=== PATIENT | male | born 1950 | race Caucasian/White ===

== ENCOUNTER 2021-04-16 07:56 | Outpatient (RCR) | payer MEDICARE, OTHER, SELFPAY ==
--- NOTE | ~2021-04-16 | XR_ITS ---
EXAMINATION: XR FOOT, RIGHT CLINICAL INFORMATION: Nonhealing foot wound. COMPARISON: None TECHNIQUE: AP, lateral, and oblique views of the right foot. FINDINGS: Soft tissue inflammatory changes are noted along the dorsal aspect of the head of the fifth metatarsal. Rarefaction of the trabecular pattern within the head of the fifth metatarsal is noted as visualized to good advantage on the AP radiograph. No discrete cortical erosions of the fifth metatarsal head are noted though the cortical margin appears thin relative to the cortical margin in the remaining metatarsals. A mild hallux valgus deformity and multiple hammertoe deformities are noted. XR/XR foot RT min 3V IMPRESSION: *Soft tissue inflammatory changes along the dorsum of the head of the fifth metatarsal. The fifth metatarsal head demonstrates mild trabecular rarefaction and lucency which is suspicious for reactive, aseptic osteolysis (increased bone perfusion with mild trabecular resorption) or early radiographic evidence of osteomyelitis. No wendi cortical erosion to definitively suggest osteomyelitis.
--- NOTE | ~2021-04-16 | XR_ITS ---
EXAMINATION: XR CHEST CLINICAL INFORMATION: COPD COMPARISON: None TECHNIQUE: 2 views of the chest were obtained. FINDINGS: The cardiac silhouette does not appear enlarged. There is an aortic valve stent graft. The ascending thoracic aorta appears tortuous and may be slightly dilated. Hilar and mediastinal contours are otherwise unremarkable. The lungs are clear. There is no pleural effusion or pneumothorax. There are degenerative changes of the spine. XR/XR chest 2V IMPRESSION: Aortic valve stent graft and calcified slightly dilated ascending thoracic aorta. Otherwise unremarkable exam.
[2021-04-16 10:07] LABS: MANUAL DIFF FLAG NO
[2021-04-16 10:12] LABS: Basophils Absolute Auto 0.1 X10*3/uL (0.0-0.2); Eosinophils Absolute Auto 0.2 X10*3/uL (0.0-0.4); Eosinophils Percent Auto 2.1 % (0-4); Hematocrit 38.8 % (42.0-52.0); Hemoglobin 12.4 g/dl (14.0-18.0); Imm Gran Abs Auto 0.02 X10*3/uL (0.00-0.03); Imm Gran Pct Auto 0.3 % (0.0-0.4); Lymphocytes Absolute Auto 1.3 X10*3/uL (1.2-4.9); Lymphocytes Percent Auto 16.6 % (20-40); Mean Corpuscular Hemoglobin 28.7 pg (27.0-33.0); Mean Corpuscular Volume 89.8 fL (80.0-98.0); Mean Platelet Volume 10.7 fL (9.4-12.4); Monocytes Absolute Auto 0.7 X10*3/uL (0.1-1.2); Neutrophils Absolute Auto 5.5 x10*3/uL (2.0-8.3); Platelet Count 143 X10*3/uL (160-400); Red Blood Count 4.32 X10*6/uL (4.60-5.80); Red Cell Distribution Width 16.7 % (11.0-16.0); White Blood Count 7.8 X10*3/uL (4.8-10.8)
[2021-04-16 10:22] LABS: Estimated Average Glucose 123 mg/dL; Hemoglobin A1C 133.0129 umol/L; Hemoglobin A1c % 5.9 %
[2021-04-16 11:01] LABS: Erythrocyte Sedimentation Rate 14 MM/HR (0-15)
[2021-04-16 11:32] LABS: Anion Gap 11 (12-20); Blood Urea Nitrogen 16 mg/dL (9-16); C Reactive Protein 0.07 mg/dL (< or = 0.50); Calcium 9.5 mg/dL (8.4-10.2); Carbon Dioxide 31 mmol/L (22-29); Chloride 101 mmol/L (96-108); Estimated Glomerular Filt Rate > 60; Glucose Random 78 mg/dL (60-115); Potassium 4.8 mmol/L (3.3-5.1); Sodium 138 mmol/L (135-145)
--- NOTE | 2021-06-12 10:38 | ECG_ITS ---
Test Reason : R/O QTC PROLONGATION Blood Pressure : / mmHG Vent. Rate : 067 BPM Atrial Rate : 000 BPM P-R Int : 000 ms QRS Dur : 098 ms QT Int : 378 ms P-R-T Axes : 000 056 056 degrees QTc Int : 399 ms Atrial fibrillation Minimal voltage criteria for LVH, may be normal variant ( Douglas product ) Nonspecific ST abnormality Abnormal ECG No previous ECGs available Referred By: Cecilia Neumann Electronically Signed By:ARON COHEN
[2021-06-12 11:05] LABS: MANUAL DIFF FLAG NO
[2021-06-12 11:24] LABS: Basophils Absolute Auto 0.1 X10*3/uL (0.0-0.2); Basophils Percent Auto 0.9 % (0-2); Eosinophils Absolute Auto 0.2 X10*3/uL (0.0-0.4); Eosinophils Percent Auto 2.8 % (0-4); Hematocrit 36.4 % (42.0-52.0); Hemoglobin 11.7 g/dl (14.0-18.0); Imm Gran Abs Auto 0.02 X10*3/uL (0.00-0.03); Imm Gran Pct Auto 0.2 % (0.0-0.4); Lymphocytes Absolute Auto 1.2 X10*3/uL (1.2-4.9); Mean Corpuscular HGB Conc 32.1 g/dl (31.0-36.0); Mean Corpuscular Hemoglobin 28.8 pg (27.0-33.0); Mean Corpuscular Volume 89.7 fL (80.0-98.0); Mean Platelet Volume 11.2 fL (9.4-12.4); Monocytes Absolute Auto 0.7 X10*3/uL (0.1-1.2); Monocytes Percent Auto 8.5 % (2-11); Neutrophils Percent Auto 73.6 % (45-73); Platelet Count 146 X10*3/uL (160-400); Red Blood Count 4.06 X10*6/uL (4.60-5.80); Red Cell Distribution Width 15.3 % (11.0-16.0); White Blood Count 8.2 X10*3/uL (4.8-10.8)
[2021-06-12 11:31] LABS: Estimated Average Glucose 128 mg/dL; Hemoglobin A1c % 6.1 %
[2021-06-12 12:07] LABS: Erythrocyte Sedimentation Rate 21 MM/HR (0-15)
[2021-06-12 12:51] LABS: Anion Gap 14 (12-20); Blood Urea Nitrogen 26 mg/dL (9-16); C Reactive Protein 0.12 mg/dL (< or = 0.50); Calcium 9.4 mg/dL (8.4-10.2); Carbon Dioxide 26 mmol/L (22-29); Chloride 101 mmol/L (96-108); Estimated Glomerular Filt Rate > 60; Glucose Random 133 mg/dL (60-115); Potassium 4.7 mmol/L (3.3-5.1); Sodium 136 mmol/L (135-145)
== END 2021-08-22 15:00 | disposition home or self-care (01) ==
LOC: HO.WCC 07:56
PROVIDERS: PCP Pediatrics; Visit Provider Physician Assistant
DX: E11.621 Type 2 diabetes mellitus with foot ulcer (principal); L97.512 Non-pressure chronic ulcer of other part of right foot with fat layer exposed; E11.69 Type 2 diabetes mellitus with other specified complication; M86.271 Subacute osteomyelitis, right ankle and foot; E11.40 Type 2 diabetes mellitus with diabetic neuropathy, unspecified; J44.9 Chronic obstructive pulmonary disease, unspecified; I11.0 Hypertensive heart disease with heart failure; I50.9 Heart failure, unspecified; I48.20 Chronic atrial fibrillation, unspecified; Z72.89 Other problems related to lifestyle; Z79.84 Long term (current) use of oral hypoglycemic drugs; Z79.01 Long term (current) use of anticoagulants; Z87.891 Personal history of nicotine dependence; Z95.2 Presence of prosthetic heart valve
CPT/HCPCS: 11042; 36415; 71046; 73630; 80048; 83036; 84134; 85025; 85652; 86140; 87071; 87147; 87186; 87205; 93005; 97597; 99214

== ENCOUNTER 2021-05-08 07:57 | Outpatient (REF) | payer MEDICARE, OTHER, SELFPAY ==
--- NOTE | ~2021-05-08 | MR_ITS ---
EXAMINATION: MRI FOOT WITHOUT AND WITH CONTRAST, RIGHT CLINICAL INFORMATION: Diabetic ulcer on the plantar surface of the fifth digit. Pain. Nonhealing wound. Evaluate for osteomyelitis. COMPARISON: Right foot radiographs dated 04/16/2021. TECHNIQUE: Multisequence MR imaging of the right foot was obtained before and after the administration of 8.5 mL Gadavist IV contrast on a high-field strength scanner. FINDINGS: Evaluation somewhat limited secondary to patient motion. Soft tissue ulceration along the plantar aspect of the 5th metatarsal head with adjacent subcutaneous edema and postcontrast enhancement, consistent with cellulitis. No evidence of abscess formation. Minimal marrow edema along the plantar aspect of the 5th metatarsal head and 5th proximal phalangeal base with minimal postcontrast enhancement. Evaluation is limited secondary to patient motion. Findings are concerning for early osteomyelitis. Small 5th metatarsophalangeal joint effusion. No additional abnormal marrow signal. No stress reaction or fracture. The visualized flexor and extensor tendons are intact. The Lisfranc ligament is intact. MR/MR foot RT wo/w con IMPRESSION: Soft tissue ulceration and cellulitis along the plantar aspect of the 5th metatarsal head without abscess formation. Minimal underlying marrow edema and postcontrast enhancement within the plantar aspect of the 5th metatarsal head and 5th proximal phalangeal base, concerning for early osteomyelitis. Small 5th metatarsophalangeal joint effusion.
== END 2021-05-08 07:58 | disposition home or self-care (01) ==
LOC: HO.XRAY 07:57
PROVIDERS: PCP Pediatrics; Visit Provider Physician Assistant
DX: E11.621 Type 2 diabetes mellitus with foot ulcer (principal); L97.512 Non-pressure chronic ulcer of other part of right foot with fat layer exposed
CPT/HCPCS: 73720; A9585

== ENCOUNTER 2021-06-05 11:12 | Outpatient (REF) | payer MEDICARE, OTHER, SELFPAY ==
[2021-06-05 13:49] LABS: INTERNATIONAL NORM RATIO 3.1 (0.9-1.1); Prothrombin Time 35.6 SEC (9.9-13.0)
== END 2021-06-05 11:13 | disposition home or self-care (01) ==
LOC: HO.WFDLDS 11:12
PROVIDERS: Visit Provider Physician Assistant
DX: I48.91 Unspecified atrial fibrillation (principal)
CPT/HCPCS: 11042; 36415; 85610

== ENCOUNTER 2021-06-08 09:53 | Outpatient (REF) | payer MEDICARE, OTHER, SELFPAY ==
[2021-06-08 11:56] LABS: INTERNATIONAL NORM RATIO 1.8 (0.9-1.1); Prothrombin Time 20.3 SEC (9.9-13.0)
== END 2021-06-08 09:54 | disposition home or self-care (01) ==
LOC: HO.WFDLDS 09:53
PROVIDERS: Visit Provider Physician Assistant
DX: I48.91 Unspecified atrial fibrillation (principal)
CPT/HCPCS: 36415; 85610

== ENCOUNTER 2021-06-13 07:26 | Outpatient (REF) | payer MEDICARE, OTHER, SELFPAY ==
[2021-06-13 11:01] LABS: INTERNATIONAL NORM RATIO 1.5 (0.9-1.1); Prothrombin Time 17.2 SEC (9.9-13.0)
== END 2021-06-13 07:27 | disposition home or self-care (01) ==
LOC: HO.WFDLDS 07:26
PROVIDERS: Visit Provider Physician Assistant
DX: I48.91 Unspecified atrial fibrillation (principal)
CPT/HCPCS: 36415; 85610

== ENCOUNTER 2021-06-18 07:28 | Outpatient (REF) | payer MEDICARE, OTHER, SELFPAY ==
[2021-06-18 11:39] LABS: INTERNATIONAL NORM RATIO 2.5 (0.9-1.1); Prothrombin Time 28.8 SEC (9.9-13.0)
== END 2021-06-18 07:29 | disposition home or self-care (01) ==
LOC: HO.WFDLDS 07:28
PROVIDERS: Visit Provider Physician Assistant
DX: I48.91 Unspecified atrial fibrillation (principal); Z79.01 Long term (current) use of anticoagulants
CPT/HCPCS: 36415; 85610

== ENCOUNTER 2021-06-22 07:42 | Outpatient (REF) | payer MEDICARE, OTHER, SELFPAY ==
[2021-06-22 11:42] LABS: INTERNATIONAL NORM RATIO 2.5 (0.9-1.1); Prothrombin Time 28.6 SEC (9.9-13.0)
== END 2021-06-22 07:43 | disposition home or self-care (01) ==
LOC: HO.WFDLDS 07:42
PROVIDERS: Visit Provider Physician Assistant
DX: I48.91 Unspecified atrial fibrillation (principal)
CPT/HCPCS: 36415; 85610

== ENCOUNTER 2021-06-29 07:21 | Outpatient (REF) | payer MEDICARE, OTHER, SELFPAY ==
[2021-06-29 11:51] LABS: INTERNATIONAL NORM RATIO 2.4 (0.9-1.1)
== END 2021-06-29 07:22 | disposition home or self-care (01) ==
LOC: HO.WFDLDS 07:21
PROVIDERS: Visit Provider Physician Assistant
DX: I48.91 Unspecified atrial fibrillation (principal)
CPT/HCPCS: 36415; 85610